=== PATIENT | male | born 1950 | race Caucasian/White ===

== ENCOUNTER 2019-04-24 15:38 | Emergency (ER) | payer OTHER ==
--- NOTE | 2019-04-24 17:33 | RAD ---
EXAM: 3 views of the right foot HISTORY: Right foot cellulitis COMPARISON: None FINDINGS: 3 views of the right foot shows no evidence of acute fracture or dislocation. No osseous er osions are seen. Moderate diffuse soft tissue swelling is seen. No degenerative changes are present. IMPRESSION: No evidence of acute osseous abnormality.
[2019-04-24 17:47] LABS: #Basophils 0.1 thou/uL (0.0-0.2); #Eosinphils 0.5 thou/uL (0.0-0.7); #Lymphocytes 1.3 thou/uL (1.20-3.40); #Monocytes 0.9 thou/uL (0.11-0.59); %Basophils 0.9 % (0.0-1.0); %Eosinophils 6.7 % (0.0-10.0); %Lymphocytes 16.4 % (21.0-51.0); %Monocytes 11.5 % (0.0-10.0); %Neutrophils 64.6 % (42.0-75.0); Hemoglobin 12.8 g/dL (14.0-18.0); Mean Corpuscular Volume 84.9 fL (78.0-98.0); Mean Platelet Volume 6.3 fL (7.4-10.4); Platelet Count 289 thou/uL (130-400); RBC Distribution Width 12.8 % (11.5-14.5); Red Blood Cell (RBC) Count 4.56 mill/uL (4.70-6.10); White Blood Cell (WBC) Count 7.7 thou/uL (4.8-10.8)
[2019-04-24 18:12] LABS: ALT (SGPT) 10 U/L (8-55); AST (SGOT) 15 U/L (5-34); Albumin 4.1 g/dL (3.4-4.8); Alkaline Phosphatase 73 U/L (40-150); Anion Gap 12 mmol/L (10-20); BUN (Urea Nitrogen) 30 mg/dL (8.4-25.7); Bilirubin, Total 0.3 mg/dL (0.2-1.2); Calc. Creatinine Clearance 0 mL/min (70-130); Carbon Dioxide 23 mmol/L (23-31); Chloride 110 mmol/L (98-107); Estimated GFR-MDRD 29; Glucose 90 mg/dL (80-115); Potassium 4.6 mmol/L (3.5-5.1); Protein, Total 7.1 g/dL (5.8-8.1); Sodium 140 mmol/L (136-145)
--- NOTE | 2019-04-24 18:33 | ULT ---
EXAM: Right lower extremity venous ultrasound HISTORY: Right lower extremity pain and erythema COMPARISON: None TECHNIQUE: Multiplanar grayscale and color Doppler images were obtained in a right lower extremity ve nous ultrasound. Spectral analysis of the Doppler waveforms were performed. FINDINGS: The common femoral vein, profunda femoral vein, superficial femoral vein, and popliteal vei n are normal in appearance without visible thrombus. These vessels demonstrate normal compression, flow, and augmentation. The posterior tibial vein and greater saphenous vein are patent without evidence of DVT. IMPRESSION: No evidence of DVT.
[2019-04-24] MEDS ORDERED: Cephalexin 250 MG CAP ONE (19:12)
[2019-04-24] MEDS ORDERED: Sulfameth/Trimethoprim DS 800-160mg TAB ONE (19:12)
== END 2019-04-24 20:16 | disposition home or self-care (01) ==
LOC: ERS 15:38
DX: L03.115 Cellulitis of right lower limb (principal); E78.5 Hyperlipidemia, unspecified; I10 Essential (primary) hypertension; Z79.899 Other long term (current) drug therapy
CPT/HCPCS: 36415; 80053; 83605; 85025; 85652; 86140